=== PATIENT | male | born 1980 | race Two or more races ===

== ENCOUNTER 2023-04-11 06:42 | Emergency (ER) | payer OTHER ==
[~2023-04-11] VITALS: Ht 177.8 cm; Wt 99.8 kg
[2023-04-11 10:49] LABS: HEMATOCRIT 46.2 % (39.0-48.0); HEMOGLOBIN 15.4 g/dL (13-16.00); MEAN CELL VOLUME 91.1 fL (80.0-100.00); MEAN CORPUSCULAR HEMOGLOBIN 30.4 pg (27.00-32.0); MEAN CORPUSCULAR HGB CONC 33.4 g/dl (32.0-36.0); PLATELET COUNT 232 K/uL (150-450); RED BLOOD COUNT 5.07 M/uL (4.00-6.00); RED CELL DISTRIBUTION WIDTH 13.7 % (11.5-14.5)
[2023-04-11 11:08] LABS: ALBUMIN 3.8 gm/dL (3.4-5.0); BILIRUBIN TOTAL 0.54 mg/dL (0.3-1.2); BILIRUBIN,CONJUGATED 0.12 mg/dL (0.0-0.2); BILIRUBIN,UNCONJUGATED 0.42 mg/dL (0.0-0.6); CALCIUM 8.9 mg/dL (8.5-10.1); CREATININE SERUM 0.89 mg/dL (0.70-1.30); GFR 94.67; POTASSIUM 4.06 mEq/L (3.5-5.1); TOTAL PROTEIN 7.1 gm/dL (6.4-8.2)
== END 2023-04-11 12:16 | disposition home or self-care (01) ==
LOC: ER 06:43
PROVIDERS: General Practice
DX: R00.2 Palpitations (principal); I48.91 Unspecified atrial fibrillation; Z88.6 Allergy status to analgesic agent